=== PATIENT | male | born 1975 | race Hispanic/Latino ===

== ENCOUNTER 2020-03-24 06:59 | Emergency (ER) | payer OTHER ==
[~2020-03-24] VITALS: Ht 182.9 cm; Wt 82.6 kg
--- OUTSIDE RECORDS SUMMARY | 2020-03-24 07:02 | XMS REPORT | Clinical Summary ---
Author Author [facility] Organization [facility] Address Unknown Phone Unavailable Care Team Providers Care Bobbin Inspector Name Role Phone Gabriel Rosenbaum MD PCP Allergies No Known Allergies Medications End Date Status Medication Sig Dispensed Refills Start Date Active loratadine (CLARITIN) 10 Take 10 mg by 0 mg tablet mouth daily. Active Problems Problem Noted Date Pure hypercholesterolemia 07/03/2018 Syncope 07/03/2018 Closed nondisplaced oblique fracture of shaft of righ t fibula 07/02/2018 Social History Date Tobacco Use Types Packs/Day Years Used Never Smoker Smokeless Tobacco: Never Used Drinks/Week oz/Week Comments Alcohol Use Yes Sex Assigned at Date Recorded Not on file Industry Job Start Date Occupation Not on file Not on file Not on file Travel End Travel History Travel Start No recent travel history available. Last Filed Vital Signs Not on file Plan of Treatment Health Maintenance Due Date Last Done Comments INFLUENZA VACCINE 06/06/2020 Results Not on fileafter 03/24/2019 Insurance Type Payer Benefit Subscriber ID Effective Phone Address Plan / Dates Group Exchange [employer]ANGE [employer] xxxxxxxxxx [id number] [employer] E EXCHANGE [id number] Advance Directives For more information, please contact: [phone] Patient Poultry Boner Explanation Type Date Recorded Advance Directives, Living Will and Medical Power of Tax Collection Coordinator [facility] Advance Directives, 07/26/2018 11:08 AM Living Will and Medical Power of Tax Collection Coordinator
[2020-03-24] MEDS ORDERED: PANTOPRAZOLE 40 MG 10ML VIAL IV STA (07:15)
[2020-03-24] MEDS ORDERED: ASPIRIN 81 MG CHEW TAB PO ONE (07:15)
--- NOTE | 2020-03-24 07:28 | Emergency Department Note ---
History of Present Illnes History of Present Illness Chief Complaint: Chest Pain History of Present Illness This is a 44 year old male PATIENT IN FROM HOME WITH COMPLAINTS OF INTE RMITTENT CHEST PAIN X 3 WEEKS; ALSO WITH COMPLAINTS OF HEAD PRESSURE, RINGING IN LEFT EAR, AND FEELING FLUSH. Historian: Patient Arrival Mode: Car Processor Grain Required: No Onset (how long ago): week(s) (3) Location: mid to left chest Quality: pain/burning Radiation: non-radiation Severity: mild Onset quality: gradual Duration (how long): day(s) Timing of current episode: intermittent, other (constant since yesterday, worse last night when he went to bed, still there when he woke but not as bad) Progression: improving Chronicity: new Context: recent illness Relieving factors: none Exacerbating factors: eating Associated symptoms: headaches, other (ringing in ears L>R) Treatments prior to arrival: none Risk factors: none Past Medical/Family History Physician Review I have reviewed the patient's past medical and family history. Any updates have been documented here. Past Medical History Recent Fever: No Clinical Suspicion of Infectio: No New/Unexplained Change in Ment: No Past Medical History: GERD Other Medical History: LOW TESTOSTERONE, hypogonadism SLEEP APNEA - USES CPAP Other Surgery: LASIK SURGERY DEVIATED SEPTUM Social History Smoking Cessation: Former smoker (20 yrs ago) Counseling Performed: No Alcohol Use: Social Any Illegal Drug Use: No TB Exposure/Symptoms: No Physically hurt or threatened: No Family History Family history of heart diseas: No Other Last Tetanus: 2018 Review of Systems Review of Systems Constitutional: no symptoms EENTM: other (ringing in ear L>R) Cardiovascular: no symptoms Respiratory: no symptoms Gastrointestinal: no symptoms Genitourinary: no symptoms Musculoskeletal: no symptoms Neurological: headache (mild) Psychological: other (increased stress due to Covid19 pandemic, 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 Physical Exam Related Data Allergies: Coded Allergies: No Known Allergies (Unverified , 03/24/20) Triage Vital Signs Vital Signs Date Time Temp Pulse Resp B/P (MAP) Pulse Ox O2 Delivery O2 Flow Rate FiO2 03/24/20 07:01 97.7 86 18 139/90 100 Vital signs reviewed: Yes Physical Exam CONSTITUTIONAL Constitutional: well-developed, well-nourished HENT HENT: normocephalic, atraumatic, oropharynx clear/moist, nose normal HENT L/R: left ext ear normal, right ext ear normal EYES Eyes: PERRL, conjunctivae normal NECK Neck: ROM normal PULMONARY Pulmonary: effort normal, breath sounds normal CARDIOVASCULAR Cardiovascular: regular rhythm, heart sounds normal, capillary refill normal, normal rate, other (partially reproducible tenderness over right sternal border) GASTROINTESTINAL Abdominal: soft, nontender, bowel sounds normal GENITOURINARY Genitourinary: exam deferred SKIN Skin: warm, dry MUSCULOSKELETAL Musculoskeletal: ROM normal NEUROLOGICAL Neurological: alert, oriented x 3, no gross motor or sensory deficits PSYCHOLOGICAL Psychological: mood/affect normal, judgement normal Results Laboratory Laboratory Laboratory Tests Test 03/24/20 07:13 White Blood Count 6.75 x10e3/uL (4.8-10.8) Red Blood Count 4.93 x10e6/uL (4.3-5.7) Hemoglobin 14.4 g/dL (14.0-18.0) Hematocrit 42.8 % (38.2-49.6) Mean Corpuscular Volume 86.8 fL (81-99) Mean Corpuscular Hemoglobin 29.2 pg (28-32) Mean Corpuscular Hemoglobin Concent 33.6 g/dL (31-35) Red Cell Distribution Width 12.7 % (11.7-14.4) Platelet Count 219 x10e3/uL (140-360) Neutrophils (%) (Auto) 47.0 % (38.7-80.0) Lymphocytes (%) (Auto) 38.8 % (18.0-39.1) Monocytes (%) (Auto) 11.6 % (4.4-11.3) Eosinophils (%) (Auto) 1.8 % (0.0-6.0) Basophils (%) (Auto) 0.4 % (0.0-1.0) Neutrophils # (Auto) 3.2 (2.1-6.9) Lymphocytes # (Auto) 2.6 (1.0-3.2) Monocytes # (Auto) 0.8 (0.2-0.8) Eosinophils # (Auto) 0.1 (0.0-0.4) Basophils # (Auto) 0.0 (0.0-0.1) Absolute Immature Granulocyte (auto 0.03 x10e3/uL (0-0.1) Prothrombin Time 12.9 seconds (11.9-14.5) Prothromb Time International Ratio 0.92 Activated Partial Thromboplast Time 30.5 seconds (23.8-35.5) Sodium Level 143 mmol/L (136-145) Potassium Level 4.1 mmol/L (3.5-5.1) Chloride Level 108 mmol/L (98-107) Carbon Dioxide Level 27 mmol/L (22-29) Anion Gap 12.1 mmol/L (8-16) Blood Urea Nitrogen 15 mg/dL (7-26) Creatinine 0.89 mg/dL (0.72-1.25) Estimat Glomerular Filtration Rate > 60 ML/MIN (60-) BUN/Creatinine Ratio 17 (6-25) Glucose Level 101 mg/dL (74-118) Calcium Level 9.5 mg/dL (8.4-10.2) Magnesium Level 2.1 MG/DL (1.3-2.1) Total Bilirubin 0.5 mg/dL (0.2-1.2) Aspartate Amino Transf (AST/SGOT) 16 IU/L (5-34) Alanine Aminotransferase (ALT/SGPT) 18 IU/L (0-55) Alkaline Phosphatase 43 IU/L (40-150) Creatine Kinase 92 IU/L (30-200) Creatine Kinase MB 2.10 ng/mL (0-5.0) Troponin I 0.003 ng/mL (0-0.300) Total Protein 7.4 g/dL (6.5-8.1) Albumin 4.3 g/dL (3.5-5.0) Globulin 3.1 g/dL (2.3-3.5) Albumin/Globulin Ratio 1.4 (0.8-2.0) Lab results reviewed: Yes Imaging Imaging results reviewed: Yes Impressions IMPRESSION: No acute cardiopulmonary abnormalities. Signed by: Mike Otto JR, MD on 03/24/2020 8:44 AM Diagnostics Tests Diagnostic test(s) reviewed: Yes Procedures 12 Lead ECG Interpretation Processor Grain: Interpreted by ED physician Prior GAS WORKER tracings: reviewed Rhythm: sinus rhythm Rate: normal (86) QRS axis: normal ST segments normal: Yes T waves normal: Yes Clinical Impression: normal ECG Critical Care Time Subsequent provider I assumed direction of critical care for this patient from another provider of my specialty. Clinical Decision Tools HEART Score List risk factors none HEART Score: HEART Score Response (Comments) Value History Slightly suspicious 0 EKG Normal 0 Age 45 - 65 1 Risk factors no risk factors 0 Troponin < or = to normal limit Total 1 Assessment & Plan Assessment & Plan Final Impression: (1) Atypical chest pain Assessment & Plan atypical CP - check ecg, cbc, chem's, cardiac enzymes, cxr - r/o STEMI/NSTEMI (CP continuous since yesterday and was worse yesterday so 1 trop should r/o NSTEMI), electrolyte abnl, radiologic abnl Depart Disposition: HOME, SELF-CARE Last Vital Signs Date Time Temp Pulse Resp B/P (MAP) Pulse Ox O2 Delivery O2 Flow Rate FiO2 03/24/20 07:01 97.7 86 18 139/90 100 Medications in the ED Pantoprazole Sodium 40 mg ONCE STAT IV ; Start 03/24/20 at 07:15; Stop 03/24/20 at 07:16; Status UNV RUTH QUIGLEY MD March 24, 2020 07:28
[2020-03-24 07:29] LABS: BASOPHILS % 0.4 % (0.0-1.0); EOSINOPHILS # (AUTO) 0.1 (0.0-0.4); EOSINOPHILS % 1.8 % (0.0-6.0); HEMATOCRIT 42.8 % (38.2-49.6); HEMOGLOBIN 14.4 g/dL (14.0-18.0); LYMPHOCYTES # (AUTO) 2.6 (1.0-3.2); LYMPHOCYTES % 38.8 % (18.0-39.1); MEAN CORPUSCULAR HEMOGLOBIN 29.2 pg (28-32); MEAN CORPUSCULAR HGB CONC 33.6 g/dL (31-35); MEAN CORPUSCULAR VOLUME 86.8 fL (81-99); MONOCYTES # (AUTO) 0.8 (0.2-0.8); MONOCYTES % 11.6 % (4.4-11.3); NEUTROPHILS # (AUTO) 3.2 (2.1-6.9); PLATELET COUNT 219 x10e3/uL (140-360); RED BLOOD COUNT 4.93 x10e6/uL (4.3-5.7); RED CELL DISTRIBUTION WIDTH 12.7 % (11.7-14.4)
[2020-03-24 07:43] LABS: INR 0.92; PROTHROMBIN TIME 12.9 seconds (11.9-14.5)
[2020-03-24 07:44] LABS: PARTIAL THROMBOPLASTIN TIME 30.5 seconds (23.8-35.5)
[2020-03-24 07:50] LABS: ALANINE AMINOTRANSFERASE 18 IU/L (0-55); ALBUMIN 4.3 g/dL (3.5-5.0); ALBUMIN/GLOBULIN RATIO 1.4 (0.8-2.0); ALKALINE PHOSPHATASE 43 IU/L (40-150); ANION GAP 12.1 mmol/L (8-16); BLOOD UREA NITROGEN 15 mg/dL (7-26); BUN/CREATININE RATIO 17 (6-25); CALCIUM 9.5 mg/dL (8.4-10.2); CARBON DIOXIDE 27 mmol/L (22-29); CHLORIDE 108 mmol/L (98-107); CREATINE KINASE 92 IU/L (30-200); CREATININE, SERUM 0.89 mg/dL (0.72-1.25); EST GLOMERULAR FILTRATION RATE > 60 ML/MIN (60-); GLUCOSE 101 mg/dL (74-118); MAGNESIUM 2.1 MG/DL (1.3-2.1); POTASSIUM 4.1 mmol/L (3.5-5.1); SODIUM 143 mmol/L (136-145)
[2020-03-24 08:40] VITALS: BP 108/74
--- NOTE | 2020-03-24 08:47 | Diagnostic Imaging Report ---
TECHNIQUE: Frontal view of the chest. INDICATION: ^cp ^[id number] ^[id number]. COMPARISON: None. FINDINGS: LINES/TUBES: None. LUNGS: The lungs are well inflated and clear. No consolidation or pulmonary edema. PLEURA: No pneumothorax or significant pleural effusion. HEART AND MEDIASTINUM: The cardiomediastinal silhouette is within normal limits. SOFT TISSUES AND BONES: Unremarkable. IMPRESSION: No acute cardiopulmonary abnormalities. Signed by: Mike Otto JR, MD on 03/24/2020 8:44 AM
== END 2020-03-24 09:14 | disposition home or self-care (01) ==
LOC: ER 06:59
DX: R07.89 Other chest pain (principal); R51 Headache; H93.12 Tinnitus, left ear; K21.9 Gastro-esophageal reflux disease without esophagitis; E29.1 Testicular hypofunction
CPT/HCPCS: 36415; 71045; 80053; 82550; 82553; 83735; 84484; 85025; 85610; 85730; 93005; 99284; C9113